=== PATIENT | female | born 1980 | race Caucasian/White ===

== ENCOUNTER 2021-01-18 15:34 | Emergency (ER) | payer SELFPAY | END 2021-01-18 17:13 | disposition home or self-care (01) | LOC: ER1 15:34 | DX: S93.602A Unspecified sprain of left foot, initial encounter (principal); F17.210 Nicotine dependence, cigarettes, uncomplicated; W11.XXXA Fall on and from ladder, initial encounter | CPT/HCPCS: 73630; 99283 ==